=== PATIENT | female | born 1945 | race Two or more races ===

== ENCOUNTER 2019-04-07 15:53 | Inpatient (IN) | payer MEDICARE ==
[~2019-04-07] VITALS: Ht 162.6 cm; Wt 72.6 kg
[2019-04-07 15:30] VITALS: BP 143/70
[2019-04-07] MEDS ORDERED: DOXA4TAB3 PO (16:11)
[2019-04-07] MEDS ORDERED: LISI40TA4 PO (16:11)
[2019-04-07] MEDS ORDERED: FLUO-120 PO (16:11)
[2019-04-07] MEDS ORDERED: HYDR25TA4 PO (16:11)
[2019-04-07] MEDS ORDERED: BIMA2.5D5 EACHEYE (16:11)
[2019-04-07] MEDS ORDERED: CARV25TA2 PO (16:11)
[2019-04-07] MEDS ORDERED: ATOR10TA PO (16:11)
[2019-04-07] MEDS ORDERED: ACETAMINOPHEN 325 MG TABLET PO PRN (18:00)
[2019-04-07] MEDS ORDERED: MAGNESIUM HYDROXIDE 30 ML LIQUID UDC PO PRN (18:00)
[2019-04-07] MEDS: BLOOD SUGAR DIAGNOSTIC 1 EACH STRIP VI ONE (18:00)
[2019-04-07] MEDS ORDERED: MAG HYDROX/AL HYDROX/SIMETH 30 ML LIQUID UDC PO PRN (18:00)
[2019-04-07] MEDS ORDERED: LORAZEPAM 1 MG TABLET PO PRN (18:00)
[2019-04-07] MEDS ORDERED: TEMAZEPAM 7.5 MG CAPSULE PO PRN (18:00)
[2019-04-07 21:00] VITALS: BP 114/56
[2019-04-08 07:30] VITALS: BP 121/67
[2019-04-08 15:20] VITALS: BP 141/51
[2019-04-08] MEDS ORDERED: Medication Not On Formulary EA (Lisinopril 40 MG) PO SCH (17:00)
[2019-04-08] MEDS: CARVEDILOL 25 MG TABLET PO SCH (17:45)
[2019-04-08] MEDS: LATANOPROST OPHT DROP 2.5 ML BOTTLE EACHEYE SCH (20:12)
[2019-04-08] MEDS: ATORVASTATIN 10 MG TABLET PO SCH (20:12)
[2019-04-08] MEDS: DOXAZOSIN 2 MG TABLET PO SCH (20:12)
[2019-04-08] MEDS: LISINOPRIL 20 MG TABLET PO SCH (20:13)
[2019-04-08 20:41] VITALS: BP 121/65
[2019-04-08] MEDS ORDERED: BIMATOPROST 0.01% OPHT DROP 2.5 ML BOTTLE EACHEYE SCH (21:00)
[2019-04-09 07:30] VITALS: BP 141/65
[2019-04-09] MEDS: HALOPERIDOL 2 MG TABLET PO SCH ×3 (09:00→17:00)
[2019-04-09] MEDS: LISINOPRIL 20 MG TABLET PO SCH ×2 (09:48→20:50)
[2019-04-09] MEDS: DIVALPROEX 250 MG TABLET.DR PO SCH ×3 (09:48→17:00)
[2019-04-09] MEDS: HYDROCHLOROTHIAZIDE 25 MG TABLET PO SCH (09:49)
[2019-04-09 10:05] VITALS: BP 126/63
[2019-04-09] MEDS: CARVEDILOL 25 MG TABLET PO SCH ×2 (11:14→18:20)
[2019-04-09 16:15] VITALS: BP 127/55
[2019-04-09] MEDS: ATORVASTATIN 10 MG TABLET PO SCH (20:50)
[2019-04-09] MEDS: DOXAZOSIN 2 MG TABLET PO SCH (20:51)
[2019-04-09] MEDS: LATANOPROST OPHT DROP 2.5 ML BOTTLE EACHEYE SCH (20:51)
[2019-04-09 21:00] VITALS: BP 125/56
[2019-04-10 07:30] VITALS: BP 127/78
[2019-04-10 07:34] LABS: BASOPHILS % (AUTO) 0.9 % (0.0-2.0); EOSINOPHILS # (AUTO) 0.1 K/uL (0.0-0.7); EOSINOPHILS % (AUTO) 1.8 % (0.0-7.0); HEMATOCRIT 37.2 % (31.2-41.9); HEMOGLOBIN 12.5 g/dL (10.9-14.3); LYMPHOCYTES # (AUTO) 1.7 K/uL (20.0-40.0); LYMPHOCYTES % (AUTO) 40.9 % (20.5-51.5); MEAN CORPUSCULAR HEMOGLOBIN 31.5 uug (24.7-32.8); MEAN CORPUSCULAR HGB CONC 34 g/dL (32.3-35.6); MEAN CORPUSCULAR VOLUME 93.9 fL (75.5-95.3); MONOCYTES # (AUTO) 0.4 K/uL (2.0-10.0); MONOCYTES % (AUTO) 8.7 % (0.0-11.0); NEUTROPHILS # (AUTO) 1.9 K/uL (1.8-8.9); NEUTROPHILS % (AUTO) 47.7 % (38.5-71.5); PLATELET COUNT (AUTO) 198 K/uL (179-408); RED BLOOD CELL COUNT(AUTO) 3.96 MIL/uL (3.63-4.92); WHITE BLOOD COUNT (AUTO) 4.1 K/uL (3.8-11.8)
[2019-04-10 07:45] LABS: CREATININE 0.6 mg/dL (0.6-1.3); POTASSIUM 4.4 mmol/L (3.5-5.1)
[2019-04-10] MEDS: CARVEDILOL 25 MG TABLET PO SCH ×2 (08:13→17:02)
[2019-04-10] MEDS: LISINOPRIL 20 MG TABLET PO SCH ×2 (09:00→21:25)
[2019-04-10] MEDS: DIVALPROEX 250 MG TABLET.DR PO SCH ×3 (09:00→17:00)
[2019-04-10] MEDS: HYDROCHLOROTHIAZIDE 25 MG TABLET PO SCH (09:00)
[2019-04-10] MEDS: HALOPERIDOL 2 MG TABLET PO SCH ×3 (09:00→17:00)
[2019-04-10 15:37] VITALS: BP 129/46
[2019-04-10 20:00] VITALS: BP 148/68
[2019-04-10] MEDS: LATANOPROST OPHT DROP 2.5 ML BOTTLE EACHEYE SCH (21:00)
[2019-04-10] MEDS: ATORVASTATIN 10 MG TABLET PO SCH (21:21)
[2019-04-10] MEDS: DOXAZOSIN 2 MG TABLET PO SCH (21:21)
[2019-04-11 07:30] VITALS: BP 126/62
[2019-04-11] MEDS: CARVEDILOL 25 MG TABLET PO SCH ×2 (08:27→17:32)
[2019-04-11] MEDS: LISINOPRIL 20 MG TABLET PO SCH ×2 (08:36→20:47)
[2019-04-11] MEDS: HYDROCHLOROTHIAZIDE 25 MG TABLET PO SCH (08:37)
[2019-04-11] MEDS: DIVALPROEX 250 MG TABLET.DR PO SCH ×3 (09:00→17:00)
[2019-04-11] MEDS: HALOPERIDOL 2 MG TABLET PO SCH ×3 (09:00→17:00)
[2019-04-11 15:18] VITALS: BP 128/72
[2019-04-11 19:46] LABS: *BILIRUBIN,URIN NEGATIVE (NEGATIVE); *CLARITY,URINE CLEAR (CLEAR); *COLOR,URINE YELLOW (YELLOW); *KETONES,URINE NEGATIVE (NEGATIVE); *UROBILINOGEN,URINE 0.2 E.U./dl (NORMAL); LEUKOCYTE ESTERASE ,URINE NEGATIVE (NEGATIVE); NITRITE, URINE NEGATIVE (NEGATIVE); UGLUCOSE NEGATIVE (NEGATIVE)
[2019-04-11 19:52] LABS: *BLOOD, URINE TRACE (NEGATIVE); WBC,URINE NONE SEEN /HPF (0-3)
[2019-04-11 20:25] VITALS: BP 142/73
[2019-04-11] MEDS: ATORVASTATIN 10 MG TABLET PO SCH (20:47)
[2019-04-11] MEDS: DOXAZOSIN 2 MG TABLET PO SCH (20:47)
[2019-04-11] MEDS: LATANOPROST OPHT DROP 2.5 ML BOTTLE EACHEYE SCH (20:48)
[2019-04-12 07:30] VITALS: BP 137/81
[2019-04-12] MEDS: DIVALPROEX 250 MG TABLET.DR PO SCH ×4 (08:37→17:00)
[2019-04-12] MEDS: HALOPERIDOL 2 MG TABLET PO SCH ×3 (08:37→20:40)
[2019-04-12] MEDS: CARVEDILOL 25 MG TABLET PO SCH ×2 (08:38→18:03)
[2019-04-12] MEDS: HYDROCHLOROTHIAZIDE 25 MG TABLET PO SCH (08:38)
[2019-04-12] MEDS: LISINOPRIL 20 MG TABLET PO SCH ×2 (08:44→20:40)
[2019-04-12] MEDS ORDERED: HALOPERIDOL LACTATE 5 MG/1 ML VIAL IM PRN (13:00)
[2019-04-12 16:38] VITALS: BP 117/67
[2019-04-12] MEDS: HALOPERIDOL LACTATE 5 MG/1 ML VIAL IM PRN ×2 (18:12→20:30)
[2019-04-12] MEDS: DOXAZOSIN 2 MG TABLET PO SCH (20:39)
[2019-04-12] MEDS: LATANOPROST OPHT DROP 2.5 ML BOTTLE EACHEYE SCH (20:39)
[2019-04-12] MEDS: ATORVASTATIN 10 MG TABLET PO SCH (20:40)
[2019-04-12 21:00] VITALS: BP 134/75
[2019-04-13 07:30] VITALS: BP 170/73
[2019-04-13] MEDS: CARVEDILOL 25 MG TABLET PO SCH ×2 (08:47→17:08)
[2019-04-13] MEDS: HYDROCHLOROTHIAZIDE 25 MG TABLET PO SCH (08:51)
[2019-04-13] MEDS: LISINOPRIL 20 MG TABLET PO SCH ×2 (08:53→21:31)
[2019-04-13] MEDS: HALOPERIDOL 2 MG TABLET PO SCH ×3 (08:58→21:31)
[2019-04-13] MEDS: DIVALPROEX 250 MG TABLET.DR PO SCH ×3 (09:00→16:01)
[2019-04-13 16:28] VITALS: BP 159/60
[2019-04-13 21:00] VITALS: BP 131/78
[2019-04-13] MEDS: LATANOPROST OPHT DROP 2.5 ML BOTTLE EACHEYE SCH (21:30)
[2019-04-13] MEDS: ATORVASTATIN 10 MG TABLET PO SCH (21:31)
[2019-04-13] MEDS: DOXAZOSIN 2 MG TABLET PO SCH (21:32)
[2019-04-14 07:30] VITALS: BP 162/74
[2019-04-14] MEDS: CARVEDILOL 25 MG TABLET PO SCH ×2 (08:52→17:01)
[2019-04-14] MEDS: HYDROCHLOROTHIAZIDE 25 MG TABLET PO SCH (08:52)
[2019-04-14] MEDS: HALOPERIDOL 2 MG TABLET PO SCH ×2 (08:52→16:44)
[2019-04-14] MEDS: DIVALPROEX 250 MG TABLET.DR PO SCH ×3 (08:52→16:43)
[2019-04-14] MEDS: LISINOPRIL 20 MG TABLET PO SCH ×2 (10:52→20:10)
[2019-04-14 17:05] VITALS: BP 156/77
[2019-04-14] MEDS: LATANOPROST OPHT DROP 2.5 ML BOTTLE EACHEYE SCH (20:08)
[2019-04-14] MEDS: DOXAZOSIN 2 MG TABLET PO SCH (20:09)
[2019-04-14] MEDS: ATORVASTATIN 10 MG TABLET PO SCH (20:09)
[2019-04-14 20:12] VITALS: BP 143/76
[2019-04-15 07:30] VITALS: BP 147/68
[2019-04-15] MEDS: DIVALPROEX 250 MG TABLET.DR PO SCH ×3 (08:23→17:45)
[2019-04-15] MEDS: FLUOXETINE HCL 20 MG CAPSULE PO SCH (08:23)
[2019-04-15] MEDS: HALOPERIDOL 2 MG TABLET PO SCH ×3 (08:23→17:45)
[2019-04-15] MEDS: LISINOPRIL 20 MG TABLET PO SCH ×2 (08:24→20:09)
[2019-04-15] MEDS: HYDROCHLOROTHIAZIDE 25 MG TABLET PO SCH (08:26)
[2019-04-15] MEDS: CARVEDILOL 25 MG TABLET PO SCH ×2 (08:27→17:46)
[2019-04-15 16:00] VITALS: BP 143/72
[2019-04-15] MEDS: LATANOPROST OPHT DROP 2.5 ML BOTTLE EACHEYE SCH (20:08)
[2019-04-15] MEDS: ATORVASTATIN 10 MG TABLET PO SCH (20:10)
[2019-04-15] MEDS: DOXAZOSIN 2 MG TABLET PO SCH (20:10)
[2019-04-15 20:23] VITALS: BP 126/69
[2019-04-16] MEDS: DIVALPROEX 250 MG TABLET.DR PO SCH ×3 (08:18→17:09)
[2019-04-16] MEDS: HALOPERIDOL 2 MG TABLET PO SCH ×3 (08:18→17:10)
[2019-04-16] MEDS: FLUOXETINE HCL 20 MG CAPSULE PO SCH (08:18)
[2019-04-16 08:28] VITALS: BP 153/64
[2019-04-16] MEDS: HYDROCHLOROTHIAZIDE 25 MG TABLET PO SCH (08:28)
[2019-04-16] MEDS: CARVEDILOL 25 MG TABLET PO SCH ×2 (08:29→17:10)
[2019-04-16] MEDS: LISINOPRIL 20 MG TABLET PO SCH ×2 (09:00→20:30)
[2019-04-16] MEDS ORDERED: HALOPERIDOL LACTATE 5 MG/1 ML VIAL IM PRN (10:15)
[2019-04-16 18:17] VITALS: BP 143/71
[2019-04-16 20:10] VITALS: BP 146/66
[2019-04-16] MEDS: DOXAZOSIN 2 MG TABLET PO SCH (20:30)
[2019-04-16] MEDS: ATORVASTATIN 10 MG TABLET PO SCH (20:30)
[2019-04-16] MEDS: LATANOPROST OPHT DROP 2.5 ML BOTTLE EACHEYE SCH (20:31)
[2019-04-17 07:30] VITALS: BP 166/71
[2019-04-17] MEDS: HYDROCHLOROTHIAZIDE 25 MG TABLET PO SCH (08:15)
[2019-04-17] MEDS: DIVALPROEX 250 MG TABLET.DR PO SCH ×3 (08:16→17:14)
[2019-04-17] MEDS: FLUOXETINE HCL 20 MG CAPSULE PO SCH (08:16)
[2019-04-17] MEDS: CARVEDILOL 25 MG TABLET PO SCH ×2 (08:16→17:14)
[2019-04-17] MEDS: HALOPERIDOL 2 MG TABLET PO SCH ×3 (08:16→17:14)
[2019-04-17] MEDS: LISINOPRIL 20 MG TABLET PO SCH ×2 (08:22→20:36)
[2019-04-17] MEDS ORDERED: hydrALAZINE HCL 10 MG TABLET PO PRN (14:45)
[2019-04-17 15:35] VITALS: BP 143/73
[2019-04-17 20:00] VITALS: BP 116/67
[2019-04-17] MEDS: DOXAZOSIN 2 MG TABLET PO SCH (20:36)
[2019-04-17] MEDS: LATANOPROST OPHT DROP 2.5 ML BOTTLE EACHEYE SCH (20:36)
[2019-04-17] MEDS: ATORVASTATIN 10 MG TABLET PO SCH (20:36)
[2019-04-18 07:30] VITALS: BP 126/69
[2019-04-18] MEDS: LISINOPRIL 20 MG TABLET PO SCH ×2 (08:24→20:13)
[2019-04-18] MEDS: FLUOXETINE HCL 20 MG CAPSULE PO SCH (08:24)
[2019-04-18] MEDS: HYDROCHLOROTHIAZIDE 25 MG TABLET PO SCH (08:25)
[2019-04-18] MEDS: DIVALPROEX 250 MG TABLET.DR PO SCH ×3 (08:25→17:13)
[2019-04-18] MEDS: HALOPERIDOL 2 MG TABLET PO SCH ×3 (08:25→17:13)
[2019-04-18] MEDS: CARVEDILOL 25 MG TABLET PO SCH ×2 (08:26→17:15)
[2019-04-18 15:26] VITALS: BP 123/66
[2019-04-18] MEDS: LATANOPROST OPHT DROP 2.5 ML BOTTLE EACHEYE SCH (20:12)
[2019-04-18] MEDS: ATORVASTATIN 10 MG TABLET PO SCH (20:12)
[2019-04-18] MEDS: DOXAZOSIN 2 MG TABLET PO SCH (20:13)
[2019-04-18 20:25] VITALS: BP 104/61
[2019-04-19 07:47] VITALS: BP 130/76
[2019-04-19] MEDS: FLUOXETINE HCL 20 MG CAPSULE PO SCH (09:10)
[2019-04-19] MEDS: DIVALPROEX 250 MG TABLET.DR PO SCH ×2 (09:10→13:17)
[2019-04-19] MEDS: LISINOPRIL 20 MG TABLET PO SCH (09:10)
[2019-04-19] MEDS: CARVEDILOL 25 MG TABLET PO SCH (09:11)
[2019-04-19] MEDS: HALOPERIDOL 2 MG TABLET PO SCH ×2 (09:11→13:17)
[2019-04-19 09:12] VITALS: BP 130/76
[2019-04-19] MEDS: HYDROCHLOROTHIAZIDE 25 MG TABLET PO SCH (09:12)
== END 2019-04-19 13:30 | disposition home or self-care (01) | DRG 885 ==
LOC: ER 15:56 → GPS 16:55
PROVIDERS: ADMIT Psychiatry & Neurology Psychiatry; ATTEND Hospitalist
DX: F25.9 Schizoaffective disorder, unspecified (principal); E78.5 Hyperlipidemia, unspecified; M25.531 Pain in right wrist; I10 Essential (primary) hypertension; Z91.14 Patient's other noncompliance with medication regimen; Z91.19 Patient's noncompliance with other medical treatment and regimen
CPT/HCPCS: 36415; 71045; 73110; 80164; 85025; 87086; 93005; A4663; J1630; J3490

== ENCOUNTER 2019-12-20 23:10 | Inpatient (IN) | payer MEDICARE, OTHER ==
[~2019-12-20] VITALS: Ht 170.2 cm; Wt 78.9 kg
[~2019-12-20 23:10] MED LIST: ATOR10TA PO; BIMA2.5D5 EACHEYE; CARV25TA2 PO; DOXA4TAB3 PO; HYDR25TA4 PO; LISI40TA4 PO
[2019-12-20] MEDS ORDERED: SENN8.6C5 PO (23:29)
[2019-12-20] MEDS ORDERED: MIRA PO (23:29)
[2019-12-20] MEDS ORDERED: ACET325C7 PO (23:29)
[2019-12-20] MEDS ORDERED: BENZ0.5T43 PO (23:29)
[2019-12-21 00:25] LABS: CARBON DIOXIDE 30 mmol/L (21-32); CHLORIDE 98 mmol/L (98-107); CREATININE 0.8 mg/dL (0.6-1.3); GLUCOSE 103 mg/dL (74-106); POTASSIUM 3.8 mmol/L (3.5-5.1); UREA NITROGEN, BLOOD 18 mg/dL (7-18)
[2019-12-21 00:32] LABS: ALANINE AMINOTRANSFERASE 18 U/L (14-59); ALKALINE PHOSPHATASE 73 U/L (50-136); ASPARTATE AMINOTRANSFERASE 13 U/L (15-37); BILIRUBIN,DIRECT 0.1 mg/dL (0.0-0.2); BILIRUBIN,TOTAL 0.3 mg/dL (0.2-1.0); CREATINE KINASE, TOTAL 133 U/L (26-192); TOTAL PROTEIN, SERUM 7.1 g/dL (6.4-8.2)
[2019-12-21 00:34] LABS: BASOPHILS % (AUTO) 0.5 % (0.0-2.0); EOSINOPHILS # (AUTO) 0.1 K/uL (0.0-0.7); EOSINOPHILS % (AUTO) 1.1 % (0.0-7.0); HEMATOCRIT 36.4 % (31.2-41.9); HEMOGLOBIN 12.4 g/dL (10.9-14.3); LYMPHOCYTES % (AUTO) 28.6 % (20.5-51.5); MEAN CORPUSCULAR HEMOGLOBIN 31.1 uug (24.7-32.8); MEAN CORPUSCULAR HGB CONC 34 g/dL (32.3-35.6); MEAN CORPUSCULAR VOLUME 90.9 fL (75.5-95.3); MONOCYTES # (AUTO) 0.7 K/uL (2.0-10.0); MONOCYTES % (AUTO) 10.5 % (0.0-11.0); NEUTROPHILS # (AUTO) 4.1 K/uL (1.8-8.9); NEUTROPHILS % (AUTO) 59.3 % (38.5-71.5); PLATELET COUNT (AUTO) 300 K/uL (179-408); WHITE BLOOD COUNT (AUTO) 6.9 K/uL (3.8-11.8)
--- NOTE | 2019-12-21 00:40 | NUR ---
Call from lab/[facility], reported Acetaminophen level of 148.4. Dr. Coates made aware.
[2019-12-21 00:41] LABS: *AMPHETAMINE, URINE NEGATIVE (NEGATIVE); *BARBITURATE, URINE NEGATIVE (NEGATIVE); *CANNABINOID, URINE NEGATIVE (NEGATIVE); *COCCAINE, URINE NEGATIVE (NEGATIVE); *OPIATE, URINE NEGATIVE (NEGATIVE); *PHENCYCLIDINE SCREEN,URINE NEGATIVE (NEGATIVE)
--- NOTE | 2019-12-21 00:41 | NUR ---
Dr. Coates with order to re run Acetaminophen level, informed laboratory tech/Mirlande and states understanding.
[2019-12-21 00:45] LABS: THYROID STIMULATING HORMONE 1.741 mIU/mL (0.358-3.740)
[2019-12-21 00:49] LABS: ETHANOL < 3 MG/DL (0-0)
[2019-12-21 02:07] LABS: ACETAMINOPHEN < 2.0 ug/mL (10-30)
--- NOTE | 2019-12-21 02:28 | NUR ---
Transfered to [facility] via [employer].
--- NOTE | 2019-12-21 02:30 | NUR ---
PATIENT ADMITTED IN MHU UNIT UNDER THE CARE OF DR. PINEDA. PATIENT ALERT BUT WITH FORGETFULNESS, UNCOOPERATIVE WITH ADMISSION PROCES, REFUSED PHOTO, AND REFUSED TO ANSWER SOME OF QUESTIONS NEEDED FOR THE ADMISSION. PATIENT AMBULATE WITH STEADY GAIT, AND CAN TRANSFER HERSELF FROM BED TO CHAIR PATIENT CONTINENT AT THIS TIME. CONT TO MONITOR.
[2019-12-21] MEDS ORDERED: MAG HYDROX/AL HYDROX/SIMETH 30 ML LIQUID UDC PO PRN (03:00)
[2019-12-21] MEDS ORDERED: TEMAZEPAM 7.5 MG CAPSULE PO PRN (03:00)
[2019-12-21] MEDS ORDERED: MAGNESIUM HYDROXIDE 30 ML LIQUID UDC PO PRN (03:00)
[2019-12-21] MEDS ORDERED: ACETAMINOPHEN 325 MG TABLET PO PRN (03:00)
[2019-12-21] MEDS ORDERED: CLONAZEPAM 0.5 MG TABLET PO PRN (03:00)
[2019-12-21 06:31] VITALS: BP 135/72
--- NOTE | 2019-12-21 06:49 | NUR ---
PATIENT STAYED AWAKE SEATED ON THE RECLINING CHAIR, PREFER TO STAY SEATED AT THE STATION, PATIENT HAS PARANOIA TOWARD THE STAFF, REFUSED TO TAKE SHOWER THIS MORNING, PATIENT REMAINS CALM AT THIS TIME. CONT TO MONITOR.
--- NOTE | 2019-12-21 07:01 | NUR ---
PATIENT REFUSED BLOOD DRAWN. MULTIPLE REDIRECTION GIVEN, INEFFECTIVE. WILL CONTINUE TO MONITOR.
[2019-12-21 07:30] VITALS: BP 141/51
[2019-12-21] MEDS ORDERED: Medication Not On Formulary EA (Acetaminophen (Tylenol) 650 MG) PO SCH (09:15)
[2019-12-21 16:00] VITALS: BP 121/73
[2019-12-21] MEDS: FLUOXETINE HCL 20 MG CAPSULE PO SCH (17:28)
--- NOTE | 2019-12-21 17:42 | NUR ---
Gps/Fruit Coordinator- Had a short nap this pm, showered earlier , had been quiet, fed after set up. Deneis any discomfort. Encouraged to stay iin the activity room during her meals. Compliant with her pm meds.
[2019-12-21 20:00] VITALS: BP 125/57
[2019-12-21] MEDS ORDERED: OLANZAPINE 10 MG VIAL IM PRN (21:00)
[2019-12-21] MEDS: SENNOSIDES 1 TABLET PO SCH (21:00)
[2019-12-21] MEDS: OLANZAPINE 5 MG TABLET PO SCH (21:24)
--- NOTE | 2019-12-22 06:28 | NUR ---
PT SLEPT 9 HOURS. PT IN NO ACUTE DISTRESS. PRESCRIBED MEDICATION GIVEN AND PT TOLERATED IT WELL. PT COOPERATIVE WITH CARE BUT REFUSED HER [place]. SAFETY AND COMFORT PROVIDED. ALL NEEDS ARE MET. WILL ENDORSE TO INCOMING NURSE FOR CONTINUITY OF CARE.
[2019-12-22 07:30] VITALS: BP 122/63
--- NOTE | 2019-12-22 08:54 | NUR ---
Conservator Contact: SW called the pts temporary conservator, Zainab Pearson ([phone]), and left a voicemail stating that the SW would like to discuss this pts treatment and discharge plan. SORAIDA provided her with a phone number to reach the SW at.
[2019-12-22] MEDS: MIRALAX 17 GM POWD.PACK PO SCH (09:00)
[2019-12-22] MEDS: LISINOPRIL 20 MG TABLET PO SCH (09:17)
[2019-12-22] MEDS: FLUOXETINE HCL 20 MG CAPSULE PO SCH (09:17)
[2019-12-22] MEDS: HYDROCHLOROTHIAZIDE 25 MG TABLET PO SCH (09:17)
--- NOTE | 2019-12-22 09:53 | NUR ---
Conservator Contact: SORAIDA received a call from Codi ([phone]), [employer] [place] Public Guardian, to be informed that the pts conservator will be off until Wednesday. SORAIDA stated that she needs the Detain to Treat for the pt for [facility] so the SW faxed a blank one with attention to Codi to the fax number: [phone].
--- NOTE | 2019-12-22 13:30 | NUR ---
SORAIDA Group Note: SORAIDA facilitated group therapy on Wednesday12/22/2019 at 1330. The group topic was discharge planning. Pt refused to attend group today. SORAIDA encouraged the pt to engage in all aspects of treatment for her recovery. SORAIDA will continue to encourage the pt to attend group programming.
--- NOTE | 2019-12-22 15:35 | NUR ---
Initial Discharge Plan: Pt currently came from [address] [place] [address], [address], [place] [address]; ([phone]) but resides in a nursing facility that the SW will obtain information for. Pts conservator, David Pearson ([phone]), will be back in the office to discuss discharge planning on Wednesday. SW will work with the pt and the MD as well regarding appropriate discharge planning. SW will form a safe and proper discharge.
[2019-12-22 15:40] VITALS: BP 109/49
--- NOTE | 2019-12-22 15:45 | NUR ---
Public Guardian Contact: SW received the Detain to Treat and placed it in the pts chart.
[2019-12-22] MEDS: SENNOSIDES 1 TABLET PO SCH (20:23)
[2019-12-22] MEDS: OLANZAPINE 5 MG TABLET PO SCH (20:23)
[2019-12-22 21:17] VITALS: BP 106/58
--- NOTE | 2019-12-23 00:15 | NUR ---
THIS NURSE RECEIVED HANDOFF REPORT FROM JACEK DAVID. PT RECEIVED INTO CARE LAYING IN BED ASLEEP. PT HAS NO S/S OF ACUTE DISTRESS OR DISCOMFORT NOTED/OBSERVED BY THIS NURSE. ALL SAFETY, FALL, AND GPS PRECAUTIONS ARE IN PLACE. WILL CONTINUE TO MONITOR AND ASSESS.
--- NOTE | 2019-12-23 05:00 | NUR ---
Patient slept throughout night with no complaints of pain/discomfort verbalized or noted/observed by this nurse. Patient was compliant with care after this nurse received handoff from JACEK Echeverria. All safety, fall, and GPS/MHU precautions remain in place.
[2019-12-23 07:30] VITALS: BP 129/55
[2019-12-23] MEDS: FLUOXETINE HCL 20 MG CAPSULE PO SCH (08:21)
[2019-12-23] MEDS: HYDROCHLOROTHIAZIDE 25 MG TABLET PO SCH (08:21)
[2019-12-23] MEDS: MIRALAX 17 GM POWD.PACK PO SCH (08:22)
[2019-12-23] MEDS: LISINOPRIL 20 MG TABLET PO SCH (08:23)
[2019-12-23 16:00] VITALS: BP 130/79
[2019-12-23 20:00] VITALS: BP 117/64
[2019-12-23] MEDS: SENNOSIDES 1 TABLET PO SCH (20:22)
[2019-12-23] MEDS: OLANZAPINE 5 MG TABLET PO SCH ×2 (20:22→20:26)
--- NOTE | 2019-12-23 20:30 | NUR ---
patient refused her Zyprexa
[2019-12-24 07:30] VITALS: BP 124/72
[2019-12-24] MEDS: FLUOXETINE HCL 20 MG CAPSULE PO SCH (08:34)
[2019-12-24] MEDS: HYDROCHLOROTHIAZIDE 25 MG TABLET PO SCH (08:35)
[2019-12-24] MEDS: LISINOPRIL 20 MG TABLET PO SCH (08:35)
[2019-12-24] MEDS: MIRALAX 17 GM POWD.PACK PO SCH (08:36)
--- NOTE | 2019-12-24 16:16 | NUR ---
Received patient this am sitting on edge of the bed. Awake , alert and oriented. Per report this am from epoxy fabrication supervisor, patient refused medications last night. This morning the patient questioned the medications but was compliant. Electrician Chief encouraged patient to come out of the room several times during the day, but patient chose to remain in the room. Patient is withdrawn and isolative. Not engaging in conversation with the other patients or staff. Continuing to encourage socialization and participation in group. Patient is unable to express why they are here and does not feel they belong here. Continuing to provide a safe environment and monitor for medication compliance and delusional thoughts. VS are stable at this time.
[2019-12-24 16:43] VITALS: BP 95/59
[2019-12-24] MEDS: SENNOSIDES 1 TABLET PO SCH (20:24)
[2019-12-24] MEDS: OLANZAPINE 5 MG TABLET PO SCH ×2 (20:24→20:30)
--- NOTE | 2019-12-24 20:31 | NUR ---
Patient is refusing her Zyprexa, demands to speak to a psychiatrist, denies having delusions or having psychiatric issues. After a lengthy discussion the patient became angry and demanded to be left alone.
[2019-12-24 20:38] VITALS: BP 133/50
[2019-12-25 07:30] VITALS: BP 152/52
--- NOTE | 2019-12-25 08:00 | NUR ---
GPS: received patient AOx1-2, patient isolative withdrawn and guarded, patient showing paranoia, hesitant with taking medication however took her meds after explaining the benefit of the said medication, patient seen by Dr. Puente , patient on LPS conserve with detain and treat orders signed,and orders to have IM shot of zyprexa if the patient refused po zyprexa, patient took her medication, will continue monitor
[2019-12-25] MEDS: FLUOXETINE HCL 20 MG CAPSULE PO SCH (08:20)
[2019-12-25] MEDS: MIRALAX 17 GM POWD.PACK PO SCH (08:21)
[2019-12-25] MEDS: LISINOPRIL 20 MG TABLET PO SCH (08:21)
[2019-12-25] MEDS: HYDROCHLOROTHIAZIDE 25 MG TABLET PO SCH (08:22)
[2019-12-25] MEDS ORDERED: OLANZAPINE 10 MG VIAL IM PRN ×2 (10:00→11:00)
[2019-12-25] MEDS ORDERED: OLANZAPINE 5 MG TABLET PO SCH (10:00)
[2019-12-25 16:00] VITALS: BP 167/76
--- NOTE | 2019-12-25 18:26 | NUR ---
patient isolative and withdrawn, continuously to be paranoid and delusional, will continue monitor
[2019-12-25 20:00] VITALS: BP 151/78
--- NOTE | 2019-12-25 20:30 | NUR ---
patient in bed, alert ambulate to the toilet. patient cooperative with po medications. patient still has paranoia,and suspicious behavior, cont to monitor.
[2019-12-25] MEDS: OLANZAPINE 5 MG TABLET PO SCH (20:41)
[2019-12-25] MEDS: SENNOSIDES 1 TABLET PO SCH (20:41)
--- NOTE | 2019-12-26 06:34 | NUR ---
patient slept most of the night, patient calm most of the night, cont to monitor.
[2019-12-26 07:30] VITALS: BP 131/82
[2019-12-26] MEDS: OLANZAPINE 5 MG TABLET PO SCH ×2 (08:17→20:37)
[2019-12-26] MEDS: MIRALAX 17 GM POWD.PACK PO SCH (08:18)
[2019-12-26] MEDS: FLUOXETINE HCL 20 MG CAPSULE PO SCH (08:18)
[2019-12-26] MEDS: HYDROCHLOROTHIAZIDE 25 MG TABLET PO SCH (08:18)
[2019-12-26] MEDS: LISINOPRIL 20 MG TABLET PO SCH (08:19)
--- NOTE | 2019-12-26 12:57 | NUR ---
Conservator Contact: SW called the pts temporary conservator, Zainab Pearson ([phone]), who stated that she was on vacation last week. She stated that the pt came from [facility] but she cannot return there. She asked that the SW attempt to place her in [facility] and if it cannot be done then the SW can place in the [place] area. She stated that the pts family is very involved and are going to court on January 10 to get conservatorship of the pt.
[2019-12-26 15:17] VITALS: BP 130/72
--- NOTE | 2019-12-26 15:27 | NUR ---
SNF Referral: SW faxed a referral to the following 4 facilities: [facility] with attention to Eugenio to the fax number: [phone] [facility] with attention to Luisana to the fax number: [phone] [facility] with attention to Ade to the fax number: [phone] [facility] with attention to Osmin to the fax number: [phone]
[2019-12-26 20:00] VITALS: BP 130/70
[2019-12-26] MEDS: SENNOSIDES 1 TABLET PO SCH (20:37)
--- NOTE | 2019-12-26 23:10 | NUR ---
Received pt resting in bed. No acute distress noted. Denies pain/ discomfort. Denies SI/ HI. Due meds given as ordered, tolerated well. Safety measures maintained. Will continue to monitor.
[2019-12-27 07:30] VITALS: BP 109/59
[2019-12-27] MEDS: OLANZAPINE 5 MG TABLET PO SCH ×2 (08:42→20:22)
[2019-12-27] MEDS: FLUOXETINE HCL 10 MG CAPSULE PO SCH (08:43)
[2019-12-27] MEDS: HYDROCHLOROTHIAZIDE 25 MG TABLET PO SCH (08:44)
[2019-12-27] MEDS: LISINOPRIL 20 MG TABLET PO SCH (08:45)
[2019-12-27] MEDS: MIRALAX 17 GM POWD.PACK PO SCH (08:45)
--- NOTE | 2019-12-27 09:00 | NUR ---
lisinopril not administered because of low blood pressure, returned to pharmacy, hydrochlorothiazide not administered either, wasted according to policy
[2019-12-27 16:00] VITALS: BP 144/67
--- NOTE | 2019-12-27 18:42 | NUR ---
no distress noted, denied suicidal thoughts
--- NOTE | 2019-12-27 19:29 | NUR ---
report given to night nurse
[2019-12-27] MEDS: SENNOSIDES 1 TABLET PO SCH (20:22)
[2019-12-27 20:27] VITALS: BP 140/66
--- NOTE | 2019-12-28 06:25 | NUR ---
Pt slept 7.0 hrs. No agitation during shift.
[2019-12-28 07:30] VITALS: BP 167/85
[2019-12-28] MEDS: HYDROCHLOROTHIAZIDE 25 MG TABLET PO SCH (08:42)
[2019-12-28] MEDS: FLUOXETINE HCL 10 MG CAPSULE PO SCH (08:43)
[2019-12-28] MEDS: MIRALAX 17 GM POWD.PACK PO SCH (08:45)
[2019-12-28] MEDS: LISINOPRIL 20 MG TABLET PO SCH (08:45)
[2019-12-28] MEDS: OLANZAPINE 5 MG TABLET PO SCH ×2 (08:46→20:21)
[2019-12-28 15:32] VITALS: BP 145/78
[2019-12-28] MEDS: SENNOSIDES 1 TABLET PO SCH (20:21)
[2019-12-28 20:54] VITALS: BP 146/60
[2019-12-29 07:30] VITALS: BP 136/67
[2019-12-29] MEDS: OLANZAPINE 5 MG TABLET PO SCH ×2 (08:29→21:57)
[2019-12-29] MEDS: FLUOXETINE HCL 10 MG CAPSULE PO SCH (08:29)
[2019-12-29] MEDS: HYDROCHLOROTHIAZIDE 25 MG TABLET PO SCH (08:30)
[2019-12-29] MEDS: LISINOPRIL 20 MG TABLET PO SCH (08:31)
[2019-12-29] MEDS: MIRALAX 17 GM POWD.PACK PO SCH (08:31)
[2019-12-29 15:56] VITALS: BP 130/72
[2019-12-29 20:00] VITALS: BP 146/74
[2019-12-29] MEDS: SENNOSIDES 1 TABLET PO SCH (21:56)
[2019-12-30 07:30] VITALS: BP 127/67
[2019-12-30] MEDS: OLANZAPINE 5 MG TABLET PO SCH ×2 (08:46→20:58)
[2019-12-30] MEDS: HYDROCHLOROTHIAZIDE 25 MG TABLET PO SCH (08:47)
[2019-12-30] MEDS: FLUOXETINE HCL 10 MG CAPSULE PO SCH (08:47)
[2019-12-30] MEDS: LISINOPRIL 20 MG TABLET PO SCH (08:47)
[2019-12-30] MEDS: MIRALAX 17 GM POWD.PACK PO SCH (08:48)
[2019-12-30 16:00] VITALS: BP 119/68
--- NOTE | 2019-12-30 16:00 | NUR ---
Gps/Stack Clerk- Stayed in her room in bed most of the afternoon, encouraged staying in the dinning room during meals. Guarded , encouraged verbalizations of her feelings and needs.
[2019-12-30] MEDS: SENNOSIDES 1 TABLET PO SCH (20:58)
[2019-12-30 21:13] VITALS: BP 148/72
[2019-12-31 07:30] VITALS: BP 135/85
[2019-12-31] MEDS: OLANZAPINE 5 MG TABLET PO SCH ×2 (08:30→20:53)
[2019-12-31] MEDS: FLUOXETINE HCL 10 MG CAPSULE PO SCH (08:31)
[2019-12-31] MEDS: LISINOPRIL 20 MG TABLET PO SCH (08:31)
[2019-12-31] MEDS: HYDROCHLOROTHIAZIDE 25 MG TABLET PO SCH (08:32)
[2019-12-31] MEDS: MIRALAX 17 GM POWD.PACK PO SCH (08:32)
--- NOTE | 2019-12-31 15:00 | NUR ---
Gps/Medical Tech- Remains isolative, withdrawn, , encouraged to attend her group therapy, guarded , encouraged verbalizations of her feelings.
[2019-12-31 15:25] VITALS: BP 144/75
[2019-12-31 20:19] VITALS: BP 156/75
[2019-12-31] MEDS: SENNOSIDES 1 TABLET PO SCH (20:52)
--- NOTE | 2019-12-31 21:28 | NUR ---
Received patient in bed, AAO x3. Calm and cooperative. Flat affect. No SI. No behavioral issues. Compliant with medications. Able to make needs known. Safety measures maintained. Continue to monitor.
[2020-01-01] MEDS: FLUOXETINE HCL 10 MG CAPSULE PO SCH (08:40)
[2020-01-01] MEDS: MIRALAX 17 GM POWD.PACK PO SCH (08:41)
[2020-01-01] MEDS: LISINOPRIL 20 MG TABLET PO SCH (08:41)
[2020-01-01] MEDS: HYDROCHLOROTHIAZIDE 25 MG TABLET PO SCH (08:41)
[2020-01-01] MEDS: OLANZAPINE 5 MG TABLET PO SCH ×3 (08:41→21:57)
--- NOTE | 2020-01-01 11:18 | NUR ---
Received patient awake in bed in stable condition. Patient stays in room this morning. Patient conversation with roommate noted. no agitation. Patient compliance with medication. not in distress. will continue monitor
[2020-01-01 13:00] VITALS: BP 145/83
[2020-01-01] MEDS: SENNOSIDES 1 TABLET PO SCH ×2 (20:20→21:57)
[2020-01-01 20:31] VITALS: BP 145/83
--- NOTE | 2020-01-02 04:19 | NUR ---
Received patient in bed, AAO x3. Calm and cooperative. Pleasant upon approach. No SI. No behavioral issues. Compliant with medications. Able to make needs known. Safety measures maintained. Continue to monitor.
[2020-01-02 07:30] VITALS: BP 148/71
[2020-01-02] MEDS: OLANZAPINE 5 MG TABLET PO SCH (08:19)
[2020-01-02] MEDS: MIRALAX 17 GM POWD.PACK PO SCH (08:19)
[2020-01-02] MEDS: LISINOPRIL 20 MG TABLET PO SCH (08:20)
[2020-01-02] MEDS: FLUOXETINE HCL 10 MG CAPSULE PO SCH (08:20)
[2020-01-02 08:21] VITALS: BP 148/79
[2020-01-02] MEDS: HYDROCHLOROTHIAZIDE 25 MG TABLET PO SCH (08:21)
--- NOTE | 2020-01-02 08:52 | NUR ---
Conservator Contact: SW called the pts temporary conservator, Zainab Pearson ([phone]), to inform her about the discharge but her mailbox was full.
--- NOTE | 2020-01-02 08:59 | NUR ---
Conservator Contact: SORAIDA called Codi ([phone]), [employer] [place] Public Guardian, and informed her that the pts conservators voicemail is full. SORAIDA provided her with all of the information that the conservator would need to know regarding the discharge and she stated that she would be emailing the conservator. She stated that the SW's phone number will be presented so that the conservator can call.
--- NOTE | 2020-01-02 10:29 | NUR ---
Discharge Note: Pt was discharged to [facility] located at [address] [place] [address]; . Pt was transported via [facility] at 1500. Pts conservator, Zainab Pearson ([phone]), was made aware of the discharge. Upon discharge, the pt appeared to be in a euthymic mood and presented with a flat affect. Pt appeared to be alert and oriented x4 (time, place, self and situation). Pt denied both suicidal and homicidal ideation as well as auditory and visual hallucinations. Pt appeared to be well groomed and appropriately dressed. Pt is ambulatory with a steady gait. Pt will be under the care of psychiatrist, Dr. Puente, located at [address] [place] [address]; and embroidery worker, Dr. Dhaval Aguila, located [address], [place] [address]; . Pt signed the Choice of Vendor form. Addendum: 01/02/20 at 1100 by MOOK QUIGLEY Pt refused to sign the Choice of Vendor form.
--- NOTE | 2020-01-02 14:11 | NUR ---
Social Work Firearms Report ([employer]): Rod Greaser completed and submitted a [employer] firearms report for [address] grave disability certification. A copy of report has been placed in patient chart.
--- NOTE | 2020-01-02 15:35 | NUR ---
DC to [facility], gave report to Candace READ, patient cooperative with discharge, gave DC instruction as agreed upon
== END 2020-01-02 15:36 | DRG 885 ==
LOC: ER 23:17 → GPS 12-21 02:11
PROVIDERS: ADMIT Psychiatry & Neurology Psychiatry; ATTEND Family Medicine
DX: F25.9 Schizoaffective disorder, unspecified (principal); E78.5 Hyperlipidemia, unspecified; F03.90 Unspecified dementia, unspecified severity, without behavioral disturbance, psychotic disturbance, mood disturbance, and anxiety; Z73.6 Limitation of activities due to disability; I10 Essential (primary) hypertension
CPT/HCPCS: 36415; 80307; 80329; 84443; 85025; 93005; A4663; G0480; G0480-TC; J2358